=== PATIENT | female | born 1935 | race Caucasian/White ===

== ENCOUNTER → 2023-06-04 | Outpatient (CLI) | payer MEDICARE ==
[~2023-06-04] MED LIST: ASCO500 PO; ATOR10 PO; Advil200 M1 PO; Calci-Mix500 MG PO; Daily Multivit1 EAC2 PO; Fish Oil300 MG PO; GLUC500 PO; LISHYD1012 PO; Magnesium Gluc500 MG PO; RALO60 PO; ROSADAN 0.75%1 EAC1 TP
== END ==
LOC: LAB SHORT 14:37 → LAB 14:37
DX: C44.310 Basal cell carcinoma of skin of unspecified parts of face (principal)
CPT/HCPCS: 88305

== ENCOUNTER 2025-01-29 11:04 | Emergency (ER) | payer MEDICARE ==
[~2025-01-29] VITALS: Ht 157.5 cm; Wt 63.5 kg
[~2025-01-29 11:04] MED LIST changes: +CEPH500 PO
[2025-01-29 11:17] VITALS: BP 143/89
== END 2025-01-29 14:07 | disposition home or self-care (01) ==
LOC: ER 11:04
DX: S43.402A Unspecified sprain of left shoulder joint, initial encounter (principal); S05.12XA Contusion of eyeball and orbital tissues, left eye, initial encounter; W18.11XA Fall from or off toilet without subsequent striking against object, initial encounter; I10 Essential (primary) hypertension; Z88.2 Allergy status to sulfonamides; Z79.899 Other long term (current) drug therapy
CPT/HCPCS: 70450; 73030